=== PATIENT | female | born 1950 | race Caucasian/White ===

== ENCOUNTER 2018-12-10 07:07 | Inpatient (IN) | payer OTHER ==
[~2018-12-10] VITALS: Ht 152.4 cm; Wt 70.4 kg
[2018-12-10] VITALS (8 sets, daily range): BP systolic 76–133; BP diastolic 42–96
--- NOTE | ~2018-12-10 | EMS ---
[facility] [address] [place] [address] EMS Patient Care Report Name: Genevieve PRINCE Room #: PRE M.R.#: [id number] Admission: Attend Phys: Discharge: Date of : 52 Report #: [id number] THIS REPORT FOR: //name// Report Transmitted: 12/10/2018 07:14 EMS Care Summary [place], [place]/[facility] Incident [id number] @ 12/10/2018 06:33 Incident Location [id number] [place], [place] [address] Patient GENEVIEVE GARCIA Female, 68 Years 1950 Patient Address [address] [place] [address] Patient History Congestive Heart Failure (CHF),Kidney/Renal Failure,Gastro-Esophageal Reflux Disease (GERD),Cardiac Condition - Other,Anemia,Chronic Kidney Disease,Respiratory Failure,Coronary Artery Disease (CAD), Patient Allergies No known allergies, Patient Medications Heparin, Docusate Sodium, Advair, Acetaminophen, Melatonin, Loperamide, Ferrous Sulfate, Gabapentin, Aspirin, Albuterol, Zofran, Carvedilol, Allopurinol, Chief Complaint MULTIPLE INJURIES AFTER FALL Disposition Transported No Lights/[place] Dispatch Reason Falls Transported To [facility] [address] [place] [address] EMS Patient Care Report Name: Genevieve PRINCE [id number] Admission: Attend Phys: Discharge: Date of : 52 Report #: [id number] SCENE: ON ARRIVAL PT FOUND SITTING UPRIGHT IN BED AT ADDRESS PROVIDED. PT IS AWAKE AND ALERT WITH A GCS OF 15. PT HAS MINOR BRUISING ABOVE THE RIGHT EYE. PT IS A PREVIOUS LEFT LOWER LEG AMPUTEE. STAFF REPORTS PT WAS ATTEMPTING TO SELF TRANSFER AND FELL INTO A SEATED, FACE FIRST POSITION. STAFF DENIES LOC FOR PT. PT REQUESTS TRANSPORT TO [facility]. PT SLID TO EMS STRETCHER. AMBULANCE: VITALS MONITORED THROUGHOUT TRANSPORT.. NO CHANGES IN PT STATUS EN ROUTE. Initial Vitals @06:56P: 75,R: 24,BP: 126/73,Pain: 0/10,GCS: 15,Revised Trauma: 12, @06:46P: 98,R: 20,BP: 148/74,GCS: 15,Revised Trauma: 12, Assessments @06:47MENTAL:No Abnormalities,SKIN:No Abnormalities,HEENT:Head/Face: Other,LUNG SOUNDS:General: No Abnormalities,Left Upper: No Abnormalities,Right Upper: No Abnormalities,Left Lower: No Abnormalities,Right Lower: No Abnormalities,ABDOMEN:General: No Abnormalities,Left Upper: No Abnormalities,Right Upper: No Abnormalities,Left Lower: No Abnormalities,Right Lower: No Abnormalities,PELVIS//GI:No Abnormalities,EXTREMITIES:Left Leg: Other,Left Arm: No Abnormalities,Right Arm: No Abnormalities,Right Leg: No Abnormalities,PULSE:NEURO:No Abnormalities,@07:00MENTAL:No Abnormalities,SKIN:HEENT:Head/Face: Other,LUNG SOUNDS:General: No Abnormalities,Left Upper: No Abnormalities,Right Upper: No Abnormalities,Left Lower: No Abnormalities,Right Lower: No Abnormalities,ABDOMEN:General: No Abnormalities,Left Upper: No Abnormalities,Right Upper: No Abnormalities,Left Lower: No Abnormalities,Right Lower: No Abnormalities,PELVIS//GI:No Abnormalities,EXTREMITIES:Left Leg: Other,Left Arm: No Abnormalities,Right Arm: No Abnormalities,Right Leg: No Abnormalities,PULSE:NEURO:No Abnormalities, Impression Acute Pain, not elsewhere classified Procedures @06:46ALS AssessmentResponse: UnchangedSucceeded@06:48StretcherResponse: Unchanged Timeline 06:31,Call Received 06:31,Dispatch Notified 06:33,Dispatched 06:33,En Route 06:45,On Scene 06:46,At Patient 06:46,BP: 148/74 M,PULSE: 98,RR: 20 R,SPO2: Ox,ETCO2: ,BG: ,PAIN: ,GCS: 15, 06:46,ALS Assessment,Response: UnchangedSucceeded, [address] [address] EMS Patient Care Report Name: Genevieve PRINCE Room #: PRE M.R.#: [id number] Admission: Attend Phys: Discharge: Date of : 52 Report #: [id number] 06:48,Stretcher,Response: Unchanged 06:54,Depart Scene 06:56,BP: 126/73 M,PULSE: 75,RR: 24 R,SPO2: Ox,ETCO2: ,BG: ,PAIN: 0,GCS: 15, 07:01,At Destination 07:25,Call Closed Disclaimer v1.1 Copyright 2019 [employer] This EMS Care Summary contains data elements from the applicable legal record (which may be displayed differently). It is designed to provide pertinent information for the following purposes: continuity of care, clinical quality, and state data reporting. The complete legal record is available to ED staff and administrators of the receiving hospital in [employer]'s Patient Tracker. All data is provided "as is."
[2018-12-10 08:03] LABS: URINE BILIRUBIN NEGATIVE (Negative); URINE BLOOD 2+ (Negative); URINE CLARITY CLOUDY; URINE COLOR YELLOW; URINE GLUCOSE-RANDOM* NEGATIVE (Negative); URINE KETONES NEGATIVE (Negative); URINE NITRITE-REFLEX NEGATIVE (Negative); URINE PROTEIN (DIPSTICK) 2+ (Negative); URINE SPECIFIC GRAVITY 1.015 (1.005-1.035); URINE UROBILINOGEN 0.2 E.U./dl (0.2-1.0)
[2018-12-10 08:11] LABS: URINE LEUKOCYTES-REFLEX 3+ (Negative)
[2018-12-10 08:31] LABS: CASTS None Seen /LPF (None Seen); SQUAMOUS 4-10 Moderate /LPF (0-3)
[2018-12-10 08:32] LABS: BACTERIA-REFLEX >30 Many /HPF (None Seen); CRYSTALS None Seen /LPF (None Seen); URINE RBC 3-10 Few /HPF (0-2); URINE WBC-REFLEX >25 Many /HPF (0-5)
[2018-12-10 08:48] LABS: HEMATOCRIT 37.6 % (37.0-47.0); HEMOGLOBIN 11.5 gm/dL (12.0-15.0); MCH 30.4 pg (26.0-34.0); MCHC 30.6 g/dL (28.0-37.0); MCV 99.4 fL (80.0-100.0); RBC 3.78 mil/uL (4.20-5.00); RDW 17.3 % (10.5-14.5); WBC 10.6 thou/uL (4.0-11.0)
[2018-12-10 08:59] LABS: CALCIUM 10.8 mg/dL (8.5-10.1); POTASSIUM 4.8 mmol/L (3.5-5.1)
[2018-12-10 09:00] LABS: APTT 35.6 Seconds (24.5-32.8); INR 1.1; PROTIME 11.5 Seconds (9.3-11.4)
[2018-12-10 09:01] LABS: HCO3 24.6 mmol/L (22.0-26.0); PCO2 50.2 mmHg (35.0-45.0); PO2 84.1 mmHg (80.0-100.0); pH 7.308 (7.360-7.450); sO2 95.3 % (92.0-98.0)
[2018-12-10 09:14] LABS: ABSOLUTE NEUTROPHILS 8.9 thou/uL (1.4-8.2)
[2018-12-10 09:15] LABS: ANISOCYTOSIS 1+; OVALOCYTES FEW; PLATELET COUNT 397 thou/uL (150-400)
[2018-12-10] MEDS ORDERED: IPRATROPIU0.2 MG/1 M INH (10:30)
[2018-12-10] MEDS ORDERED: ALBUTEROL2.5 MG/31 INH (10:30)
--- NOTE | 2018-12-10 10:30 | NUR ---
ATTEMPTED TO CALL CENTER TO UPDATE ON PT'S STATUS, NO ANSWER
[2018-12-10] MEDS ORDERED: ADVAIR 250-501 EACH INH (10:31)
[2018-12-10] MEDS ORDERED: ALLOPURINOL 10100 M3 PO (10:32)
[2018-12-10] MEDS ORDERED: ASA81BEC PO (10:32)
[2018-12-10] MEDS ORDERED: CALCIUM ACETAT667 M2 PO (10:32)
[2018-12-10] MEDS ORDERED: COREG6.25 MG PO (10:33)
[2018-12-10] MEDS ORDERED: IRON325 M1 PO (10:34)
[2018-12-10] MEDS ORDERED: DULCOLAX STOOL100 M1 PO (10:34)
[2018-12-10] MEDS ORDERED: NEURONTIN100 MG PO (10:35)
[2018-12-10] MEDS ORDERED: HEPARIN 5,5000 UNIT1 SUBQ (10:36)
[2018-12-10] MEDS ORDERED: MELATONIN5 MG PO (10:36)
[2018-12-10] MEDS ORDERED: PRO-STAT LIQUID30 M1 PO (10:37)
[2018-12-10] MEDS ORDERED: RENAL-VITE TAB0.8 MG PO (10:37)
[2018-12-10] MEDS ORDERED: SALONPAS PATCH1 EAC1 TOP (10:38)
[2018-12-10] MEDS ORDERED: SENNA PLUS TAB1 EACH PO (10:38)
[2018-12-10] MEDS ORDERED: THEREMS-M1 EACH PO (10:39)
[2018-12-10] MEDS ORDERED: ZINC SULFATE220 MG PO (10:39)
[2018-12-10] MEDS ORDERED: PAIN RELIEF325 MG PO (10:40)
[2018-12-10] MEDS ORDERED: MIRALAX119 GM PO (10:41)
[2018-12-10] MEDS ORDERED: ZOFRAN4 MG PO (10:41)
[2018-12-10] MEDS ORDERED: VENTOLIN HFA INH8 GM INH (10:41)
[2018-12-10] MEDS ORDERED: CAPZASIN-HP42.5 GM TOP (10:42)
[2018-12-10] MEDS ORDERED: NYAMYC15 GM TOP (10:43)
--- NOTE | 2018-12-10 11:45 | EKG ---
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
--- NOTE | 2018-12-10 16:28 | NUR ---
68 YO FEMALE ADMITTED TO 213 FROM ED. PATIENT LETHARGIC, WHEN STIMULATED BECOMES COMBATIVE. WOUND PHOTOS TAKEN AND PLACED IN CHART. VSS, ON BIPAP AND CONTINUOUS PULSE OX. DAVIS CATHETER INSERTED, PATIENT TOLERATED WELL, WILL CONTINUE TO MONITOR
[2018-12-10 16:39] LABS: URINE BILIRUBIN NEGATIVE (Negative); URINE BLOOD 2+ (Negative); URINE CLARITY SL CLOUDY; URINE COLOR YELLOW; URINE GLUCOSE-RANDOM* NEGATIVE (Negative); URINE KETONES NEGATIVE (Negative); URINE LEUKOCYTES-REFLEX 3+ (Negative); URINE NITRITE-REFLEX NEGATIVE (Negative); URINE PROTEIN (DIPSTICK) 1+ (Negative); URINE SPECIFIC GRAVITY 1.015 (1.005-1.035); URINE UROBILINOGEN 0.2 E.U./dl (0.2-1.0)
[2018-12-10 16:49] LABS: SQUAMOUS 4-10 Moderate /LPF (0-3)
[2018-12-10 16:50] LABS: BACTERIA-REFLEX >30 Many /HPF (None Seen); CASTS None Seen /LPF (None Seen); CRYSTALS None Seen /LPF (None Seen); URINE WBC-REFLEX >25 Many /HPF (0-5)
[2018-12-11] VITALS (30 sets, daily range): BP systolic 79–122; BP diastolic 34–83
--- NOTE | 2018-12-11 04:00 | NUR ---
ASSUMED PT CARE AROUND 1900. PT IS LETHARGIC BUT WILL ATTEMPT TO SQUEEZE HANDS ON COMMAND. PT DOES NOT ANSWER ORIENTATION QUESTIONS. SHE DOES YELL "NO" AND "OUCH" WHEN BEING REPOSITIONED AND CLEANED UP. BG AND BP LOW AT BEGINNING OF SHIFT. NOTIFIED DRYWALL MECHANIC AGRICULTURAL SCIENCE PROFESSOR FOR HOSPITALIST. ORDERS RECEIVED. BG IMPROVED WITH 1 AMP D5O. BP IMPROVED AFTER IVF WERE STARTED PER ORDER. PT IS AFIB ON TELE. PT BECAME TACHYCARDIC. NOTIFIED DRYWALL MECHANIC AGAIN. ORDER RECEIVED TO START CARDIZEM GTT. CARDIZEM GTT INFUSING THIS TIME. WILL CONTINUE TO MONITOR HR AND BP. REPOSITIONED Q2H. PT HAD A FEW SMALL/MEDIUM SIZED LOOSE STOOLS THIS SHIFT. FALL PRECAUTIONS IN PLACE. NOT PROGRESSING WELL TOWARD POC GOALS. WILL CONTINUE TO MONITOR FURTHER.
[2018-12-11 05:08] LABS: HEMATOCRIT 31.8 % (37.0-47.0); MCH 30.9 pg (26.0-34.0); MCHC 31.3 g/dL (28.0-37.0); MCV 98.7 fL (80.0-100.0); RBC 3.23 mil/uL (4.20-5.00); RDW 17.1 % (10.5-14.5); WBC 10.2 thou/uL (4.0-11.0)
--- NOTE | 2018-12-11 05:09 | NUR ---
PT AWAKE AND MORE CONVERSANT THIS MORNING. PT IS ABLE TO FOLLOW COMMANDS. STILL CONFUSED BUT MUCH MORE RESPONSIVE. BP LOW AND STILL TACHYCARDIC ON TELE. AFIB ON TELE MONITOR. NOTIFIED INSIDE SALES ADVERTISING EXECUTIVE COLLECTION SYSTEMS TECHNICIAN FOR HOSPITALIST. WILL GIVE 250ML NS BOLUS PER ORDER. REMAINS ON CARDIZEM GTT.
[2018-12-11 06:04] LABS: CALCIUM 9.5 mg/dL (8.5-10.1); CREATININE 4.2 mg/dL (0.6-1.0); MAGNESIUM 2.1 mg/dL (1.8-2.4); PHOSPHORUS 5.7 mg/dL (2.5-4.9); POTASSIUM 4.5 mmol/L (3.5-5.1)
[2018-12-11 06:41] LABS: BE(vivo) -0.4 mmol/L (-2 to +3); PCO2 38.5 mmHg (35.0-45.0); PO2 111.4 mmHg (80.0-100.0); pH 7.413 (7.360-7.450); sO2 98.1 % (92.0-98.0)
[2018-12-11 11:33] LABS: URINE CREATININE-RANDOM* 80.4 mg/dL; URINE PROTEIN-RANDOM* 149.1 mg/dL (<11.9)
--- NOTE | 2018-12-11 12:22 | 2DMMODE ---
[facility] [address] [place] [address] 2 D/M-MODE ECHOCARDIOGRAM Name: JON PRINCE Room #: 213-P ADM IN .R.#: [id number] Admission: 12/10/18 Attend Phys: Mike Benjamin MD Discharge: Date of : 52 Report #: [id number] THIS REPORT FOR: //name// APPROVED REPORT Study performed: 12/11/2018 11:13:52 EXAM: Comprehensive 2D, Doppler, and color-flow Echocardiogram Patient Location: Bedside Room #: 213 Status: routine BSA: 1.65 HR: 123 bpm BP: 97/83 mmHg Rhythm: afib RVR Other Information Study Quality: Adequate Indications Congestive Heart Failure Atrial Fibrillation 2D Dimensions RVDd: 36.38 mm IVSd: 7.75 (7-11mm) LVOT Diam: 16.51 (18-24mm) LVDd: 38.54 mm PWd: 11.18 (7-11mm) Ascending Ao: 28.95 (22-36mm) LVDs: 28.20 (25-40mm) Aortic Root: 25.37 mm IVC: 18.00 mm Volumes Left Atrial Volume (Systole) Single Plane 4CH: 58.46 mL Single Plane 2CH: 110.79 mL LA ESV Index: 53.00 mL/m2 Aortic Valve AoV Peak Dar.: 3.81 m/s AO Peak Gr.: 58.18 mmHg LVOT Max P.57 mmHg AO Mean Gr.: 32.00 mmHg LVOT Mean P.66 mmHg AO V2 Mean: 2.67 m/s LVOT Max V: 1.07 m/s AO V2 VTI: 69.17 cm LVOT Mean V: 0.78 m/s NOMI (VTI): 0.67 cm2 LVOT V1 VTI: 21.78 cm NOMI Vmax: 0.60 cm2 AI Vmax: 3.61 m/s SV (LVOT): 46.60 mL [facility] [place] [place] [address] 2 D/M-MODE ECHOCARDIOGRAM Name: JON PRICNE Room #: 213-[facility] IN .R.#: [id number] Admission: 12/10/18 Attend Phys: Mike Benjamin MD Discharge: Date of : 52 Report #: [id number] AI Armstrong: 2.86 m/s2 AI PHT: 366.04 ms Mitral Valve MV Peak Gr.: 30.93 mmHg MV Mean Gr.: 12.32 mmHg MV Max Dar.: 2.78 m/s MV Mean Dar.: 1.50 m/s MV VTI: 342.78 mm MVA VTI: 135.94 mm2 Pulmonary Valve PV Peak Dar.: 1.26 m/s PV Peak Gr.: 6.31 mmHg Tricuspid Valve TR Peak Dar.: 3.61 m/s RAP Estimate: 10.00 mmHg TR Peak Gr.: 52.21 mmHg PA Pressure: 62.00 mmHg Left Ventricle The left ventricle is normal size. There is normal left ventricular wall thickness. The overall left ventricular systolic function appears normal. LVEF is 55-60%. This study is not technically sufficient to allow evaluation of the LV diastolic function due to atrial fibrillation with RVR. Right Ventricle The right ventricle is normal size. Right ventricle appears mildly hypokinetic. Atria Left atrium is severely dilated. Right atrium is severely dilated. Aortic Valve Aortic valve is heavily calcified. Trace aortic regurgitation. There is severe valvular aortic stenosis. Calculated aortic valve area is 0.6 cm2 with maximum pressure gradient of 58 mmHg and mean pressure gradient of 32 mmHg. Mitral Valve Severe mitral annular calcification. Moderate mitral regurgitation. Moderate to severe mitral stenosis. Calculated mitral valve area is 1.4 cm2 with maximum pressure gradient of 31 mmHg and mean pressure gradient of 12 mmHg. [facility] [address] [place] [address] 2 D/M-MODE ECHOCARDIOGRAM Name: JON PRINCE Room #: 213-[facility] IN ..#: [id number] Admission: 12/10/18 Attend Phys: Mike Benjamin MD Discharge: Date of : 52 Report #: [id number] Tricuspid Valve The tricuspid valve is normal in structure. Severe tricuspid regurgitation. PAP is estimated at 62 mmHg. Pulmonic Valve Pulmonic valve is not well visualized. There is no pulmonic valvular regurgitation. Great Vessels The aortic root is normal in size. IVC is normal in size and collapses <50% with inspiration. Pericardium There is no pericardial effusion. <Conclusion> The left ventricle is normal size. LVEF is 55-60%. Left atrium is severely dilated. Right atrium is severely dilated. Aortic valve is heavily calcified. Trace aortic regurgitation. There is severe valvular aortic stenosis. Calculated aortic valve area is 0.6 cm2 with maximum pressure gradient of 58 mmHg and mean pressure gradient of 32 mmHg. Severe mitral annular calcification. Moderate mitral regurgitation. Moderate to severe mitral stenosis. Calculated mitral valve area is 1.4 cm2 with maximum pressure gradient of 31 mmHg and mean pressure gradient of 12 mmHg. The tricuspid valve is normal in structure. Severe tricuspid regurgitation. PAP is estimated at 62 mmHg. Pulmonic valve is not well visualized. There is no pericardial effusion. <ELECTRONICALLY SIGNED> By: Shane Mathur MD 12/11/18 1221 1221 122 Shane Mathur MD /INF
--- NOTE | 2018-12-11 13:11 | NUR ---
WOUND CARE; LACERATION RIGHT TEMPORAL AREA DUE TO FALL. DRIED BLOOD NOTED, CLEANSED W/ NS, LEFT OPEN TO AIR, LEFT POSTERIOR KNEE WOUND DRY ESCHAR, NO DRAINAGE, CLEANSE W/ NS, XEROFORM GUAZE, BORDER DRSG APPLIED. INCONT OF STOOL, BUTTOCKS AREA EXCORIATED, CLEANSED W/ NS, ZGUARD APPLIED, COOPERATIVE W/ CARE BUT CONFUSION PRESENT, CATTLE KNOCKER INFORMED
--- NOTE | 2018-12-11 13:50 | NUR ---
REPORT RECEIVED FROM DIONNE WILD. PT RECEIVED IN ICU #244 WITH AFIB RVR 120-UPPER 140'S, BP 111/64, RR-26-28. PT ANXIOUS, ORDERING NURSES TO TO PERFORM TASKS SHE WANT COMPLETED NOW. SA02 DRIFTED DOWN TO 91%, PLACED ON 2L/NC.
--- NOTE | 2018-12-11 14:12 | NUR ---
ASSUMED CARE AT SHIFT CHANGE, SHE IS ALERT AND ORIENTED X4 BUT FORGETFUL. BP LOW AND HR IS HIGH, CARDIZEM GTT AT 5MG/HR FOR AFIB RVR. S/B JON DESKTOP ADMINISTRATOR CARDIO, ORDERS RECIEVED TO OCTAVIANOER PATIENT TO ICU, REPORT GIVEN TO ABEBA AND PATIENT TRANFERED TO ICU.
--- NOTE | 2018-12-11 15:05 | NUR ---
PATIENT ADMITS TO [facility] FROM [facility] WHERE SHE IS LTC RESIDENT PER JAUN HER FAMILY. PATIENT ADMITS TO ICU ROMM 244 WITH AMS. ALON REPORTS HE WAS NOT NOTIFIED FROM FACILITY SHE WAS TRANSFERRING TO [facility]. HE REPORTS SHE HAD A FALL AT FACILITY AND HE WANTED DETAILS OF WHAT HAD HAPPENED. REQUESTED LIASON FOR [facility] TO CALL FAMILY. PATIENT WITH INCREASE HEART RATE. SP WITH RN. PLAN RETURN TO [facility] ONCE STABLE.
--- NOTE | 2018-12-11 15:07 | NUR ---
Pt TRANSFERRED TO ICU, PT WILL PLACE Pt ON HOLD AND AWAIT NEW PT ORDERS PRIOR TO INITIATING PT EVALUATION ONCE Pt MEDICALLY APPROPRIATE FOR PT.
--- NOTE | 2018-12-11 16:20 | NUR ---
PT RESIDES AT [facility] LTC FAXED CLINICAL UPDATE TO FACILITY AND RECEIVED CONFIRMATION AND SPOKE WITH MERRY IN ADM AT FACILITY. DP TO FOLLOW.
--- NOTE | 2018-12-11 18:45 | NUR ---
STARTED SINDI GTT, CARDIZEM TITRATED OFF. DOPPLER/ULTRASOUND IN PROGRESS. HR 130'S TO 150'S HOWEVER NOT SUSTAINED. PT RESTING WHEN UNDISTURBED.
--- NOTE | 2018-12-11 21:52 | NUR ---
PT PLACED ON BIPAP AT 2039 DUE TO TACHYCARDIA, TACHYPNEA, AND LABORED BREATHING. PT TOLERATING BIPAP WELL THUS FAR.
[2018-12-12] VITALS (76 sets, daily range): BP systolic 80–125; BP diastolic 20–89
--- NOTE | 2018-12-12 06:08 | NUR ---
PT PLACED ON BIPAP AT 0500 DUE TO LOW O2 SAT.
--- NOTE | 2018-12-12 07:28 | NUR ---
ORDER REC'D FOR OT EVAL AND TREAT. PATIENT MOVED TO ICU AND WILL BE PLACED ON HOLD PER PROTOCOL. WILL AWAIT RESUME OT ORDERS TO RESUME WHEN APPROPRIATE.
--- NOTE | 2018-12-12 07:53 | EKG ---
[address] [place] [address] ELECTROCARDIOGRAM REPORT Name: SARINA PRINCE Room #: 244-P ADM IN M.R.#: [id number] Admission: 12/10/18 Attend Phys: Mike Benjamin MD Discharge: Date of : 52 Report #: [id number] THIS REPORT FOR: //name// [facility] Test Date: 2018-12-11 Test Time: 10:28:42 Pat Name: SARINA PRINCE Department: Room: 244 Gender: F [employer]: ROCIO : 1950 Requested By: Sarina Harrington Order Number: [id number] MD: Lamin Colvin Measurements Intervals [place] Rate: 133 P: MI: QRS: 20 QRSD: 55 T: 172 QT: 334 QTc: 497 Interpretive Statements Atrial fibrillation Low voltage, extremity leads Nonspecific ST and T wave abnormality Borderline prolonged QT interval Compared to ECG 12/10/2018 07:30:58 No significant change was found Electronically Signed On 12-12-2018 7:53:12 CDT by Lamin Colvin [email or web address] <ELECTRONICALLY SIGNED> By: Lamin Colvin MD, [facility] 12/12/18 0753 1028 1028 Lamin Colvin MD, [facility] /EPI
--- NOTE | 2018-12-12 07:58 | NUR ---
alert to person, afib with rvr-118, zeus infusing, resting quietly on bipap when undisturbed. dr. dove present. ken tinajero np cardiology present.
[2018-12-12 11:35] LABS: HEMATOCRIT 34.7 % (37.0-47.0); HEMOGLOBIN 10.4 gm/dL (12.0-15.0); MCH 30.1 pg (26.0-34.0); MCV 100.5 fL (80.0-100.0); RBC 3.45 mil/uL (4.20-5.00); RDW 17.3 % (10.5-14.5); WBC 12.8 thou/uL (4.0-11.0)
[2018-12-12 11:49] LABS: ALBUMIN 1.9 g/dL (3.4-5.0); CALCIUM 9.3 mg/dL (8.5-10.1); CREATININE 4.1 mg/dL (0.6-1.0); PHOSPHORUS 6.1 mg/dL (2.5-4.9); POTASSIUM 5.2 mmol/L (3.5-5.1)
--- NOTE | 2018-12-12 14:59 | NUR ---
CALL PLACED TO DR. VAZQUEZ REGARDING LAB RESULTS AND NEED FOR CENTRAL LINE ACCESS. JAUN GARCIA, BROTHER PRESENT. DR. VAZQUEZ SPOKE WITH HIM ON THE PHONE REGARDING CODE STATUS POSSIBLE COMFORT CARE. PER DR. VAZQUEZ, PT TO REMAIN FULL CODE AT THIS TIME. SEE ORDERS FOR DETAILS.
--- NOTE | 2018-12-12 16:32 | NUR ---
son signed consent for central line access. time out performed, then forrest aleman iv team placed central line. scant amount bleeding noted at insertion site with dressing intact. pcxr in progress.
--- NOTE | 2018-12-12 16:32 | NUR ---
VASCULAR ACCESS TEAM CONSULTED FOR CVAD. PT'S LABS,MEDS,HISTORY,ORDER AND CONSENT VERIFIED. LIJ WAS WIDELY PATENT WITH USG. 6FR 25CM TL POWER JACC INSERTED TO 7CM EXTERNAL PER HOSPITAL P&P. PT TOLERATED WELL. STAT CXR ORDERED.
--- NOTE | 2018-12-12 16:55 | NUR ---
CXR SHOWS LINE CURLED, DRESSING REMOVED, EACH LUMEN POWER FLUSHED TO REPOSITION CATH. 2ND CXR SHOWS LINE NOW STRAIGHT WAITING FOR POSITION CONFIRMATION
--- NOTE | 2018-12-12 17:47 | NUR ---
CXR CONFIRMED PLACEMENT IN MIS SVC, RELEASED FOR IMMEDIATE USE TO ABEBA TRUONG
[2018-12-13] VITALS (61 sets, daily range): BP systolic 76–182; BP diastolic 37–106
--- NOTE | 2018-12-13 04:53 | NUR ---
PATIENT HR CONSISTENTLY >[address] VAILENTEHINAL NOTIFED. A ONE TIME ORDER FOR DIGOXIN 0.5 MG IV OBTAINED. BP STABLE AT 98/64. PATIENT CURRENTLY MAXED ON NEOSYNEPHRINE AT 200 MCG/MIN.
[2018-12-13 05:32] LABS: HEMATOCRIT 32.2 % (37.0-47.0); MCH 30.9 pg (26.0-34.0); MCHC 31.2 g/dL (28.0-37.0); MCV 98.9 fL (80.0-100.0); PLATELET COUNT 396 thou/uL (150-400); RBC 3.25 mil/uL (4.20-5.00); RDW 16.9 % (10.5-14.5); WBC 9.8 thou/uL (4.0-11.0)
[2018-12-13 05:54] LABS: ALBUMIN 1.8 g/dL (3.4-5.0); CALCIUM 8.7 mg/dL (8.5-10.1); CREATININE 4.1 mg/dL (0.6-1.0); POTASSIUM 4.6 mmol/L (3.5-5.1); TOTAL BILIRUBIN 0.3 mg/dL (<0.1-1.0); TOTAL PROTEIN 5.7 g/dL (6.4-8.2)
[2018-12-13 06:33] LABS: ABSOLUTE NEUTROPHILS 8.4 thou/uL (1.4-8.2)
[2018-12-13 06:34] LABS: ANISOCYTOSIS 1+; PLATELET ESTIMATE NORMAL; POIKILOCYTOSIS 1+; POLYCHROMASIA 1+
--- NOTE | 2018-12-13 08:30 | NUR ---
PT WAS LYING DOWN FLAT AND TURNING FROM SIDE TO SIDE TO GET DRESSING CHANGE DONW ON BUTTOCK WHEN HER LIPS TURNED BLUE AND THEN ULTIMATELY HER WHOLE FACE. SHE WAS AGONALLY BREATHING AND NOT RESPONDING. HEIDI ALVA CALLED. DR. CHAPA RESPONDED AND AFTER A NURSE SPOKE WITH PT BROTHER WHO SAID TO DO EVERYTHING, DR. CHAPA INTUBATED PT. 7.5ett. 21CM AT LIP. OGT ALSO PLACED AND BOTH WERE VERIFIED WITH XRAY. NO FAMILY HERE TODAY. AFTER INTUBATION, PT PINKED UP AND SAT WENT UP TO 97%/ PT WAS EXTREMELY RESTLESS AND TRYING TO PULL ETT. SEDATED ON DIPRIVAN AND RESTRAINED.
--- NOTE | 2018-12-13 08:43 | NUR ---
WOUND CARE NOTE; PT SEEN 0815 FOR WOUND CARE, CONFUSED BUT COOPERATIVE W/ CARE, RIGHT POSTERIOR KNEE WOUND HEALING, NO DRAINAGE, BUTTOCKS EXCORIATION GREATLY IMPROVED, WOUND CARE DONE PER ORDERS, PHOTOS TAKEN, SEE PROCESS INTERVENTIONS FOR WOUND MEASUREMENTS, ROBOT DESIGNER PRESENT RECOMMENDATIONS; CONT SAME WOUND CARE, WILL CONT TO FOLLOW
[2018-12-13 08:57] LABS: BE(vivo) -6.5 mmol/L (-2 to +3); HCO3 20.5 mmol/L (22.0-26.0); PCO2 47.2 mmHg (35.0-45.0); PO2 242.6 mmHg (80.0-100.0); sO2 99.4 % (92.0-98.0)
[2018-12-13 08:58] LABS: pH 7.256 (7.360-7.450)
[2018-12-14] VITALS (45 sets, daily range): BP systolic 82–127; BP diastolic 32–70
--- NOTE | 2018-12-14 03:37 | NUR ---
PER DR BLELO'S NOTE PT IS ON PALLITIVE CARE AND ALL LABS AND DIAGNOSTIC TEST SHOULD BE STOPPED PT IS PALLITIVE CARE NOW. CALLED Rolf TAVARES NP AT 0337 TO CONFIRM IT IS OK TO D/C AM LABS.
--- NOTE | 2018-12-14 08:56 | NUR ---
Nutrition: Deferring nutrition eval, pt is now comfort care.
--- NOTE | 2018-12-14 14:00 | NUR ---
FAMILY AT BEDSIDE, PT SEEMS VERY COMFORTABLE. EMOTIONAL SUPPORT GIVEN.
--- NOTE | 2018-12-14 17:00 | NUR ---
ASYSTOLE, NO SPONTAEOUS RESP, PUPILS FIXED. AWAITING ORDER TO PRONOUNCE. DR. ACE VORA.
--- NOTE | 2018-12-14 17:20 | NUR ---
ASYSTOLE, NO PUPIL REACTION, NO RESP OR HEARTBEAT. PT PRONOUNCED BY ERWIN AND INDIRA SINGH PER DR. BELLO'S ORDERS. [place] STATES PT IS A CANDADATE FO TISSUE AND EYE. OK TO RELEASE TO [facility] BUT NOT HOME.
--- NOTE | 2018-12-19 08:39 | HC ---
[facility] [place] [address] CONSULTATION Name: JON GARCIA Room #: 244-P [facility] IN M.R.#: [id number] Admission: 12/10/18 Attend Phys: Mike Benjamin MD Discharge: 12/14/18 Date of : 52 Report #: [id number] THIS REPORT FOR: //name// CC: Vitor Benjamin REASON FOR CONSULTATION: Elevated creatinine. REASON FOR PRESENTATION: Post fall. HISTORY OF PRESENT ILLNESS: The details of the history of present illness were obtained from the medical chart. The patient is currently not able to provide me with the details of her history. She was brought from her nursing facility with a laceration of the right forehead, status post fall. She was found to have an extremely elevated blood pressure. She was also found to be in acute kidney injury with a creatinine value of 4.0. I do not have any previous medical records and I am not really sure what the patient's baseline is. Listed amongst her medications are some blood pressure medications. She is known to have aortic stenosis. Per the medical record, she is also known to have decub ulcers in the lower coccygeal area. She had a code blue event back in April of this year. This was at . It looks like that most of the patient's care is being received at [facility]. We did have some labs on the patient back from April of this year at and this showed a creatinine of 1.9. PAST MEDICAL HISTORY: 1. Rheumatic heart disease. 2. Aortic stenosis. 3. Chronic kidney disease. 4. Sacral ulcers. 5. AFib. 6. Dementia. ALLERGIES: None. 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 SOCIAL AND PERSONAL HISTORY: She resides in a nursing facility. She is noncommunicative. FAMILY HISTORY: Unavailable given the patient's medical condition. REVIEW OF SYSTEMS: Unobtainable given the patient's medical conditions. MEDICATIONS: 1. Carvedilol. 2. Gabapentin. 3. Folic acid. [facility] [address] [place] [address] CONSULTATION Name: JON GARCIA Room #: [facility].#: [id number] Admission: 12/10/18 Attend Phys: Mike Benjamin MD Discharge: 12/14/18 Date of : 52 Report #: [id number] 4. Melatonin. 5. Diltiazem. 6. D5 half normal. 7. Zofran. PHYSICAL EXAMINATION: VITAL SIGNS: Blood pressure is now 90/40 while maintained on Cardizem, pulse rate is 140, temperature is 37.3. HEAD AND NECK: Maintained on CPAP. CHEST: Bilateral crackles. CARDIOVASCULAR: No rub. ABDOMEN: Soft, nontender. EXTREMITIES: Lower extremities, no edema. LABORATORY DATA: Reviewed. Sodium is 143, potassium is 4.5, BUN is 65 and creatinine is 4.2. Chest x-ray reviewed, right-sided effusion. IMPRESSION AND PLAN: 1. Acute kidney injury. 2. Chronic kidney disease with a creatinine value of 1.9 back in April of this year. 3. Encephalopathy. 4. Atrial fibrillation. 5. Altered mental status. 6. Hypertension. 7. Congestive heart failure. 8. Peripheral vascular disease. 9. Current worsening of the renal function is expected with the hemodynamic fluctuation. The patient was on the extreme hypertensive side. Blood pressure is now on the hypotensive side. She is also in atrial fibrillation. 10. I will send appropriate acute kidney injury workup. 11. Avoid hypotension. 12. Continue with slow rate IV fluid. 13. Follow creatinine values. 14. Follow electrolytes. 15. Watch volume status. 16. We will continue to follow during her hospital stay. <ELECTRONICALLY SIGNED> By: Darlin Zhang MD 12/19/18 0839 0808 2035 Darlin Zhang MD /nt
--- NOTE | 2018-12-26 10:15 | H ---
[facility] [place] [address] HISTORY AND PHYSICAL Name: JON GARCIA Room #: 244-P [facility] IN M.R.#: [id number] Admission: 12/10/18 Attend Phys: Mike Benjamin MD Discharge: 12/14/18 Date of : 52 Report #: [id number] THIS REPORT FOR: //name// CC: Vitor Benjamin DATE OF SERVICE: 12/10/2018 PRIMARY CARE PHYSICIAN: Vitor Thompson D.O. NEXT OF KIN OR FAMILY CONTACT INFORMATION: Kapil Barnett, . ADVANCE DIRECTIVES: Not available. CHIEF COMPLAINT: Fall with injury to the right side of the forehead and altered mental status. HISTORY OF PRESENT ILLNESS: The patient is a 68-year-old female who has multiple comorbidities including stage 4 kidney disease, congestive heart failure, aortic stenosis and has a decubitus ulcer in the lower sacrococcygeal area and also in the left popliteal fossa, which are chronic wounds and the patient apparently had a code blue in 04/2018 at [facility] and is an amputee for left lower extremity BKA. The patient comes in with a fall this morning at the nursing facility and according to the EMS, the patient was sitting on the bed and was noncommunicative, but awake and has been on heparin 5000 t.i.d. and therefore was sent to the ER for evaluation as the patient had trauma to the right side of the forehead. En route, the patient's vital signs remained stable. However, when she arrived in the Emergency Room, she was noted to be in atrial fibrillation with rapid ventricular rate and was verbally responsive, but was somnolent, but was unable to answer questions into the Emergency Room provider. The patient was started on Cardizem drip after the initial workup was done and a CT scan of the head and neck was done, which basically indicated right supraorbital soft tissue laceration and atrophy with small vessel chronic ischemic disease and otherwise no acute intracranial process and the CT of C-spine also showed multilevel cervical spondylosis without any acute changes and was cleared to be removed from collar. The patient also had UA and urine culture sent from the ER, which indicated urinary tract infection and the patient is now being admitted to CCU with atrial fibrillation, rapid ventricular rate, UTI, a fall and injury to the right side of the supraorbital forehead area. Chest x-ray in the Emergency Room indicated bilateral moderate effusion with bibasilar compressive atelectasis rather than infiltrate. The patient was unable to give any history and so I called the nursing facility and the lead nurse, Bessy, had not seen the patient as the patient was transferred to the emergency ambulance before she started her shift, so she was unable to give any history for patient's history of present illness except the fall. The patient's discharge summary from [address] [address] HISTORY AND PHYSICAL Name: JON GARCIA Room #: 244-P [facility] IN Shi.Ary#: [id number] Admission: 12/10/18 Attend Phys: Mike Benjamin MD Discharge: 12/14/18 Date of : 52 Report #: [id number] and the blood work apparently was done last in 04/2018, which showed BUN of 22 and creatinine of 1.98 and other than that, no other information was available with Bessy. PAST MEDICAL HISTORY: Limited, but significant for: 1. Congestive heart failure, ejection fraction not known. 2. Aortic stenosis. 3. Peripheral vascular disease. 4. Stage 4 kidney disease. 5. 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 6. Chronic paroxysmal atrial fibrillation. 7. On heparin for atrial fibrillation and DVT prophylaxis, dose is not known. 8. Dementia. PAST SURGICAL HISTORY: Left BKA. ALLERGIES: No known drug allergies. PERSONAL HISTORY AND SOCIAL HISTORY: Not available. The patient, however, did inform me that she does not want to be on machines when she was yelling and screaming at the nursing staff for diaper change and skin exam, but the patient now is somnolent and is not communicative, and I tried to reach her next of kin, Kapil Barnett, and was an answering machine, so message was left for them to call back to CCU. FAMILY HISTORY: Not available either. CURRENT MEDICATION: List interestingly was not sent from the halfway and so that is not available either. REVIEW OF SYSTEMS: Limited as the patient is somnolent and other than the fall, we do not have any other review of system available from the halfway as well as I talked to the lead nurse, Bessy, at the nursing facility. PHYSICAL EXAMINATION: VITAL SIGNS: Temperature 36.4, heart rate 142, respirations 22, blood pressure 104/63, pulse oximetry 96%. When she presented to the ER at 0700; however, during course of her stay, her blood pressure had varied significantly, after diltiazem drip was started, the heart rate at the time of examination was, heart rate 104, respirations 22, blood pressure 98/57, pulse oximetry 91% on 2 liters of oxygen by nasal cannula. GENERAL: The patient is somnolent with a visible bruise and a superficial skin breakdown on the right supraorbital area on the forehead and no active bleeding noted at the site and soft tissue swelling noted underneath. HEENT: Pupils are equally round and reactive to light. The patient is unable [facility] [address] [place] [address] HISTORY AND PHYSICAL Name: JON GARCIA Room #: [address] [place] [address] IN M.R.#: [id number] Admission: 12/10/18 Attend Phys: Mike Benjamin MD Discharge: 12/14/18 Date of : 52 Report #: [id number] to follow directions for extraocular muscle movement testing. Conjunctivae are pale. Sclerae are nonicteric. Oropharynx, limited exam as the patient does not open her mouth. NECK: Supple. No JVD noted. No lymphadenopathy, no thyromegaly. HEART: S1, S2. Irregularly irregular. Tachycardia noted with systolic ejection murmur present. LUNGS: Decreased breath sounds bilaterally with clear to auscultation in upper lobes anteriorly and middle lobe posteriorly. No wheezes noted. ABDOMEN: Soft, nontender, nondistended, normal active bowel sounds. EXTREMITIES: Left BKA noted and skin breakdown behind the popliteal fossa medially noted and at coccygeal area the patient has a skin breakdown as well. Other than that, the skin exam was unremarkable. No CVA tenderness noted in right lower extremity. 2+ pitting edema noted and dry skin noted. No skin breakdown at the heel noted. LABORATORY DATA: The patient had pH of 7.308, pCO2 elevated at 50, pO2 84.1 on 2 liters of oxygen by nasal cannula with a saturation 94%. Lactic acid was 1.30. Chemistries indicate sodium 139, potassium 4.8, chloride 102, bicarbonate 26, BUN 62, creatinine 4.0, estimated GFR 11, calcium 10.8, CPK was elevated at 512. INR 1.1, PT 11.5, PTT is elevated at 35.6. Hematology indicates WBC 10.6 with differential significant for 84% segmented neutrophils, no bandemia noted. Hemoglobin 11.5, hematocrit 37.6, and platelet count is 397,000. Urinalysis indicates cloudy urine with pH 6.0, specific gravity 1.015 and 2+ blood, 3+ leukocyte esterase, greater than 25 wbc's. It is a very contaminated urine sample with 4-10 squamous epithelial cells per high power field, many bacteria are seen, random glucose is negative, and ketones are negative and nitrite is negative. Urine culture was sent from the Emergency Room. IMAGING: CT scan of the C-spine indicates multilevel cervical spondylosis at C5-C6 without any acute changes and CT head without contrast indicates right supraorbital soft tissue laceration without any hematoma and mild atrophy of the brain noted. Chest x-ray indicates bilateral pleural effusion, moderate size, and compressive atelectasis without infiltrates noted. ASSESSMENT AND PLAN: 1. Altered mental status with a fall. The patient is hypersomnolent. We will go ahead and add ammonia level, TSH, and we will write for neuro checks, and the patient may need MRI of the brain if mentation does not change; however, the exam is completely nonfocal during the nursing assessment. In my assessment, the patient was yelling and screaming with all four extremities moving, so I would tend to think hypercapnia might be contributing to somnolence. I will do neuro checks. 2. Fall precaution. 3. We will get the baseline neurological assessment from halfway. Apparently, Dr. Vitor Thompson, trouble shooter, follows the patient at the halfway, so we will go ahead and consult him as well. [facility] [address] [place] [address] HISTORY AND PHYSICAL Name: JON GARCIA Room #: 244-P [facility] STEVEN Harrell#: [id number] Admission: 12/10/18 Attend Phys: Mike Benjamin MD Discharge: 12/14/18 Date of : 52 Report #: [id number] 4. Atrial fibrillation with rapid ventricular rate. The patient has a history of atrial fibrillation and is on Cardizem drip. We will continue the same with the goal to keep MAP above 65 or 70. Avoid hypotension. 5. Congestive heart failure exacerbation with bilateral pleural effusion. The patient will need intravenous Lasix; however, CPK is elevated and the patient is hypotensive and at this time, we will just go ahead and use BiPAP for hypercapnia and respiratory acidosis with metabolic acidosis underlying as well and would get Cardiology consult as well. The echocardiogram tomorrow morning and then will get the medical records from [facility]. 6. Wound care team would be consulted as well. 7. Stage 4 kidney disease. We will go ahead and consult Nephrology and avoid hypotension, avoid nephrotoxic agents, accurate intake and output and daily weight. 8. Peripheral arterial disease. The patient has amputation, left lower extremity below knee amputation and would get the records from [facility] and continue heparin, which was started; however, because of the laceration in the forehead, we will use caution. 9. Chronic obstructive pulmonary disease, underlying. We will go ahead and continue DuoNeb breathing treatment. Currently, is compensated without any exacerbation. 10. We will get the medication list from the halfway. 11. Urinary tract infection. We will go ahead and continue Rocephin that was started in the Emergency Room and plan of care was discussed with the nurse in the Emergency Room as well as in Critical Care Unit. Greater than 30 minutes were spent in direct care of the patient. <ELECTRONICALLY SIGNED> By: Clarissa Ordaz MD 12/26/18 [id number] Clarissa Ordaz MD /nt
== END 2018-12-14 17:20 | DRG 871 ==
LOC: ER 07:07 → ICU 09:50 → 2N 09:50 → EROBS 09:50 → 2N 10:19 → ICU 12-11 14:51
PROVIDERS: Emergency Medicine; Hospitalist; Internal Medicine; Nurse Practitioner; ADMIT Hospitalist
DX: A41.9 Sepsis, unspecified organism (principal); J96.02 Acute respiratory failure with hypercapnia; I50.33 Acute on chronic diastolic (congestive) heart failure; N18.6 End stage renal disease; J96.01 Acute respiratory failure with hypoxia; N17.9 Acute kidney failure, unspecified; N39.0 Urinary tract infection, site not specified; E87.2 Acidosis; G93.40 Encephalopathy, unspecified; I13.2 Hypertensive heart and chronic kidney disease with heart failure and with stage 5 chronic kidney disease, or end stage renal disease; F03.90 Unspecified dementia, unspecified severity, without behavioral disturbance, psychotic disturbance, mood disturbance, and anxiety; I73.9 Peripheral vascular disease, unspecified; I48.0 Paroxysmal atrial fibrillation; L89.159 Pressure ulcer of sacral region, unspecified stage; K21.9 Gastro-esophageal reflux disease without esophagitis; E87.70 Fluid overload, unspecified; D64.9 Anemia, unspecified; I95.9 Hypotension, unspecified; I27.20 Pulmonary hypertension, unspecified; I08.1 Rheumatic disorders of both mitral and tricuspid valves; Z89.512 Acquired absence of left leg below knee; Z79.899 Other long term (current) drug therapy
CPT/HCPCS: 10078; 10081